=== PATIENT | male | born 1970 | race Caucasian/White ===

== ENCOUNTER → 2018-03-20 | Outpatient (CLI) | payer BC | LOC: HYPER 03-12 17:13 | DX: E11.621 Type 2 diabetes mellitus with foot ulcer (principal); L97.522 Non-pressure chronic ulcer of other part of left foot with fat layer exposed; L84 Corns and callosities; E11.69 Type 2 diabetes mellitus with other specified complication; M86.8X7 Other osteomyelitis, ankle and foot; E11.42 Type 2 diabetes mellitus with diabetic polyneuropathy; E78.5 Hyperlipidemia, unspecified; B35.3 Tinea pedis; I10 Essential (primary) hypertension; M24.574 Contracture, right foot ==

== ENCOUNTER → 2018-04-04 | Outpatient (CLI) | payer BC | LOC: HYPER 04-02 09:59 | DX: E11.621 Type 2 diabetes mellitus with foot ulcer (principal); L97.522 Non-pressure chronic ulcer of other part of left foot with fat layer exposed; L84 Corns and callosities; E11.41 Type 2 diabetes mellitus with diabetic mononeuropathy; E11.69 Type 2 diabetes mellitus with other specified complication; M86.8X7 Other osteomyelitis, ankle and foot; B35.3 Tinea pedis; E78.5 Hyperlipidemia, unspecified; I10 Essential (primary) hypertension ==

== ENCOUNTER → 2018-04-06 | Outpatient (CLI) | payer BC | LOC: HYPER 07:42 | DX: E11.621 Type 2 diabetes mellitus with foot ulcer (principal); L97.522 Non-pressure chronic ulcer of other part of left foot with fat layer exposed; L84 Corns and callosities; E11.41 Type 2 diabetes mellitus with diabetic mononeuropathy; E11.69 Type 2 diabetes mellitus with other specified complication; M86.8X7 Other osteomyelitis, ankle and foot; B35.3 Tinea pedis; E78.5 Hyperlipidemia, unspecified; I10 Essential (primary) hypertension ==

== ENCOUNTER → 2018-04-12 | Outpatient (CLI) | payer BC | LOC: HYPER 07:10 | DX: E11.621 Type 2 diabetes mellitus with foot ulcer (principal); L97.522 Non-pressure chronic ulcer of other part of left foot with fat layer exposed; L84 Corns and callosities; E11.41 Type 2 diabetes mellitus with diabetic mononeuropathy; E11.69 Type 2 diabetes mellitus with other specified complication; M86.8X7 Other osteomyelitis, ankle and foot; B35.3 Tinea pedis; E78.5 Hyperlipidemia, unspecified; I10 Essential (primary) hypertension ==

== ENCOUNTER → 2018-04-16 | Outpatient (CLI) | payer BC | LOC: HYPER 07:06 | DX: E11.621 Type 2 diabetes mellitus with foot ulcer (principal); L97.522 Non-pressure chronic ulcer of other part of left foot with fat layer exposed; L84 Corns and callosities; E11.41 Type 2 diabetes mellitus with diabetic mononeuropathy; E11.69 Type 2 diabetes mellitus with other specified complication; M86.8X7 Other osteomyelitis, ankle and foot; B35.3 Tinea pedis; E78.5 Hyperlipidemia, unspecified; I10 Essential (primary) hypertension ==

== ENCOUNTER → 2018-04-26 | Outpatient (CLI) | payer BC | LOC: HYPER 07:02 | DX: E11.621 Type 2 diabetes mellitus with foot ulcer (principal); L97.522 Non-pressure chronic ulcer of other part of left foot with fat layer exposed; L84 Corns and callosities; B35.3 Tinea pedis; E11.41 Type 2 diabetes mellitus with diabetic mononeuropathy; E11.69 Type 2 diabetes mellitus with other specified complication; M86.8X7 Other osteomyelitis, ankle and foot; E78.5 Hyperlipidemia, unspecified; I10 Essential (primary) hypertension; M24.574 Contracture, right foot; M24.575 Contracture, left foot ==

== ENCOUNTER → 2018-04-26 | Outpatient (CLI) | payer BC | LOC: MRI 07:39 | DX: L97.421 Non-pressure chronic ulcer of left heel and midfoot limited to breakdown of skin (principal); M60.872 Other myositis, left ankle and foot; L03.116 Cellulitis of left lower limb; M19.072 Primary osteoarthritis, left ankle and foot; M25.475 Effusion, left foot; R60.0 Localized edema ==

== ENCOUNTER → 2019-10-29 | Outpatient (CLI) | payer OTHER ==
[~2019-10-29] VITALS: Ht 180.3 cm; Wt 102.1 kg
[~2019-10-29] MED LIST: B-12 COMPL1000 MCG/1 INJECTION; GLUCOPHAGE1000 MG PO; GLUCOTROL10 MG PO; OZEMPIC0.25 MG/0. SUBLING; PRINIVIL40 MG PO; ROSUVASTATIN CA20 MG PO
[2019-10-29 08:09] VITALS: BP 121/97
--- NOTE | 2019-10-29 08:40 | NUR ---
Pain Clinic Assessment: 1. History of Osteoarthritis: Not Applicable History of Rheumatoid Arthritis: Not Applicable 2. Height: 5 ft. 11 in. 180.3 cm. Weight: 225.0 lb. oz. 102.060 kg. Patient's BMI: 31.4 3. Vital Signs: BP: 121/97 Pulse: 96 Resp: 16 Temp: 02 Sat: 97 ECG Mon: 4. Pain Intensity: 1 TODAY 3 AVG 5. Fall Risk: Dizziness: N Needs help standing or walking: N Fallen in the last 3 months: N Fall risk comments: 6. Patient on Blood Thinner: None 7. History of Hypertension: Y 8. Opioid Therapy greater than 6 weeks: N Opiate Contract Signed: 10/29/19 9. Risk Assessment Tool Provided: LOW 10. Functional Assessment Tool: 11. Recreational Drug Use: Never Drug Type: Tobacco Use: Current Some Day Smoker Tobacco Type: Cigars Amount or Packs/day: 1 How Many Years: 5 Alcohol Use: Yes Frequency: Monthly Quant: 1-2
--- NOTE | 2019-10-29 11:23 | HPC ---
[facility] [place] [address] PAIN MANAGEMENT CONSULTATION Name: RICHMOND DAY Room #: REG ANN Yoav.#: [id number] Admission: 10/29/19 Attend Phys: Gareth Olea DO Discharge: Date of : 68 Report #: [id number] THIS REPORT FOR: cc: Gregg Howard,Gareth Frazier DO ~ DATE OF SERVICE: 10/29/2019 REFERRING PHYSICIAN: Gregg Howard MD CHIEF COMPLAINT: Neck pain, bilateral upper extremity pain with paresthesias. HISTORY OF PRESENT ILLNESS: As you know, the patient is a very pleasant 48-year-old male who reports acute onset of neck pain, bilateral upper extremity pain that began 10/2015. The patient denies injury or trauma that may have led to symptom development. He has been dealing with symptoms on and off since that time. He sought evaluation through his primary care physician, Dr. Gregg Howard, who trialled conservative treatment options. He is being worked up for vitamin B12 deficiency as well as cervical radiculopathy for which the patient was referred to our clinic and is having evaluation from ENT in regards to a thyroid mass found on the right side incidentally during MRI of the cervical spine. The patient has been referred to our service to discuss treatment options for possible cervical radiculopathy. The findings of this MRI of the cervical spine did show changes at C5-C6 and C6-C7 level, which show mild to moderate changes. There was concern that some of his symptoms were related to cervical radiculopathy. The patient reports today his pain is periodic and momentary, describes the pain as shooting, sharp, numbness and tingling. Places current pain score 1/10, daily average of 3/10, worst pain has been as 4/10. The patient states that his symptoms tend to exacerbate with weather changes. He reports no improvement in symptoms with any treatment today. He has been referred to our service to discuss treatment options for possible cervical radiculopathy. PAST MEDICAL HISTORY: 1. Vitamin B12 deficiency. 2. Peripheral neuropathy. 3. Hypertension. 4. Dyslipidemia. 5. Diabetes mellitus type 2. 6. Thyroid mass. 7. Cataracts. PAST SURGICAL HISTORY: 1. Osteotomy of the metatarsal on the left. [address] [address] PAIN MANAGEMENT CONSULTATION Name: RICHMOND DAY Room #: REG [facility] Yoav.#: [id number] Admission: 10/29/19 Attend Phys: Gareth Olea DO Discharge: Date of : 68 Report #: [id number] 2. Sesamoid ectomy, first toe bilaterally. 3. Right fourth toe amputation. 4. Tracheostomy, status post allergic reaction. SOCIAL HISTORY: The patient reports he is a nonsmoker. Denies IV or illicit drug use. Admits to one alcohol beverage per day. He is in software database architect. He is working, not receiving workmen's compensation nor is he trying to obtain disability benefits. He is unaccompanied at today's visit. REVIEW OF SYSTEMS: Positive for weight change, headaches, wearing corrective eyewear, cataracts, numbness and tingling sensations involving the bilateral upper extremities and lower extremities and non-insulin dependent diabetes. All other review of systems negative per 12-point review of systems other than those listed in history of present illness. Pain impact score 12/70 indicating mild interference of daily activities secondary to pain. IMAGING: MRI of the cervical spine obtained on 10/01/2019 shows C2-C3, C3-C4, C4-C5 unremarkable. C5-C6 shows mild disk narrowing, ventral endplate osteophyte formation with broad-based posterior disk osteophyte complex resulting in minimal flattening of the ventral thecal sac. No focal disk herniation. Results in mild central canal stenosis. Right uncovertebral osteophyte formation resulting in mild right neural foraminal narrowing, minimal left. C6-C7 shows mild disk space narrowing, Modic type 2 endplate degenerative changes, minimal ventral endplate osteophyte formation, broad-based posterior disk osteophyte formation noted asymmetrical to the right. Superimposed right paracentral to annular disc bulge resulting in flattening of the right ventral thecal sac. No focal disk herniation. Mild central canal stenosis, bilateral uncovertebral osteophyte formation resulting in mild bilateral neural foraminal stenosis. C7-T1 unremarkable. PHYSICAL EXAMINATION: VITAL SIGNS: Blood pressure 121/97, pulse is 96, respiratory rate 16 and unlabored. The patient is 97% on room air. Height 5 feet 11 inches tall, weight 225 pounds, BMI calculated 31.4. GENERAL: Well-developed, well-nourished, well-hydrated, 48-year-old male. He appears stated age. Pain is rated today to a level of 1-3/10. HEENT: Normocephalic, atraumatic. Pupils equal, round and reactive. Extraocular muscles are intact. NEUROLOGIC: Speech fluent. The patient deemed a fair historian. LUNGS: Clear. No wheeze, rhonchi, no rales. CARDIOVASCULAR: Regular. No appreciable gallop, no rub. ABDOMEN: Soft, nontender, nondistended. Bowel sounds are present. EXTREMITIES: Show no clubbing, no cyanosis, no edema. MUSCULOSKELETAL: Palpatory tenderness over the cervical spine. No spinous [address] [place] [address] PAIN MANAGEMENT CONSULTATION Name: RICHMOND DAY Room #: REG ANN Usha.#: [id number] Admission: 10/29/19 Attend Phys: Gareth Olea DO Discharge: Date of : 68 Report #: [id number] process tenderness. There is no deformity, no spasming of the area. Upper extremity strength appears equal and symmetrical 5/5. He is intact to light touch in the upper extremities except for a decreased sensation along the right C6-C7 dermatome, negative left. Muscle bulk and tone is symmetrical when comparing upper extremities. Spurling's test is equivocal. Deep tendon reflexes are symmetrical, 2+/4 at biceps, brachialis and triceps. ASSESSMENT: 1. Possible cervical radiculopathy. 2. Displacement of cervical intervertebral disk with radicular symptoms. 3. Neural foraminal stenosis of the cervical spine. 4. Vitamin B deficiency. 5. Peripheral neuropathy. 6. Chronic intractable pain. PLAN: 1. Based on today's physical exam and the history the patient has provided, the description the patient uses in regard to pain, it would appear he is suffering from 2 different pain generators. One is likely cervical radiculopathy on the right consistent with the loss of dermatomal distribution to tactile sensation on the C6 and C7 dermatome on the right consistent with the findings in his MRI. The patient is suffering from peripheral neuropathic symptoms secondary to vitamin B12 deficiency, which is consistent with his extremely low numbers and follow up with Neurology. We discussed with the patient that treatment options for his cervical radiculopathy would be as follows. We also discussed treatment options for his peripheral neuropathy. The following was discussed with the patient today. In regards to the patient's cervical radiculopathy treatment would include physical therapy, stretching exercises and traction techniques. We discussed medication management utilizing neuropathic pain medication such as nortriptyline, amitriptyline, Cymbalta, Lyrica or gabapentin. We discussed cervical epidural injection under fluoroscopic guidance to address his right C6-C7 dermatomal distribution of radicular pain. We also discussed surgery options with the patient today. After reviewing risks and benefits of all proposed treatment options, the patient chose to move forward with a cervical epidural injection under fluoroscopic guidance. The patient does report he has undergone chiropractic manipulation, but this did not provide much in the way of improvement. He is hopeful an epidural injection will provide improvement. 2. The patient was advised that due to third alliance party payer restrictions, authorization would have to be obtained before the patient could undergo a cervical epidural injection. We will begin this authorization process immediately. Once it has been obtained, we will have the patient return to undergo the epidural injection requested. 3. In regards to the patient's peripheral neuropathic symptoms secondary to vitamin B12 deficiency, I recommend he continue to follow up with Neurology in [address] [address] PAIN MANAGEMENT CONSULTATION Name: RICHMOND DAY Room #: REG CLSindhu Madsen#: [id number] Admission: 10/29/19 Attend Phys: Gareth Olea DO Discharge: Date of : 68 Report #: [id number] regards to vitamin B supplementation, which apparently he has now normalized his vitamin B12 with weekly injections. Peripheral neuropathic symptoms may be resolved with neuropathic symptoms and we can discuss this at the next visit or he can discuss this with his neurologist in starting some type of neuropathic medication such as nortriptyline, amitriptyline, Cymbalta, Lyrica or gabapentin, all of which could be quite beneficial. We will discuss this again at followup visit. 4. We will see the patient back in followup visit once we have achieved authorization for the patient to undergo cervical epidural injection to address his right C6-C7 dermatomal distribution of radiculopathy. We are hopeful to have this authorization as quickly as possible. 5. No direct medication changes were made at today's visit. We will have the patient continue current medical therapy as previously prescribed. 6. We wish to thank Dr. Howard for the referral of this patient to our clinic. We will keep you apprised of his response to treatment as we address the cervical radicular component of the patient's symptoms and also discuss treatment options for his peripheral neuropathic symptoms secondary to vitamin B12 deficiency. Again, we wish to thank you for the opportunity to see this patient in consultation. <ELECTRONICALLY SIGNED> By: Gareth Olea DO 10/29/19 [id number] Gareth Olea DO /nt
== END ==
LOC: PAIN 06:48
PROVIDERS: ATTEND Anesthesiology Pain Medicine
DX: M50.30 Other cervical disc degeneration, unspecified cervical region (principal); M79.604 Pain in right leg; M79.605 Pain in left leg; R20.2 Paresthesia of skin; M48.02 Spinal stenosis, cervical region; E53.0 Riboflavin deficiency; G62.9 Polyneuropathy, unspecified; I10 Essential (primary) hypertension; E11.9 Type 2 diabetes mellitus without complications

== ENCOUNTER → 2019-10-30 | Outpatient (CLI) | payer OTHER ==
[~2019-10-30] VITALS: Ht 180.3 cm; Wt 102.1 kg
--- NOTE | ~2019-10-30 | HPC ---
[facility] [place] [address] [place] [address] PAIN MANAGEMENT CONSULTATION Name: RICHMOND DAY Room #: REG ANN Yoav.#: [id number] Admission: 10/30/19 Attend Phys: Gareth Olea DO Discharge: Date of : 68 Report #: [id number] THIS REPORT FOR: cc: Gregg Howard,Gareth Frazier DO ~ CC: Gareth Howard MD DATE OF SERVICE: 10/30/2019 REFERRING PHYSICIAN: Gregg Howard MD CHIEF COMPLAINT: Neck pain, bilateral upper extremity pain and paresthesias. HISTORY OF PRESENT ILLNESS: As you know, the patient is a very pleasant 48-year-old male with acute onset of neck pain, bilateral upper extremity pain began in October 2015. He denies new injury or trauma that may have led the symptom development. He sought evaluation through his primary care physician who trialled conservative treatment options, unfortunately, these did not provide long-term benefit. He subsequently has undergone imaging, which showed changes consistent with cervical radiculopathy. The patient was sent to our clinic. We saw the patient in consultation per the request of Dr. Howard on 10/29/2019 where the patient was diagnosed with cervical radiculopathy secondary to the displacement of a cervical intervertebral disk and neural foraminal stenosis. He was given today's appointment to undergo a cervical epidural injection. He is also suffering from peripheral neuropathic symptoms consistent with his B12 deficiency. Despite the fact the patient has normalized his B12 over the past year, he has not seen much in the way of improvement. He continues to be treated for this issue. He returns today to undergo cervical epidural injection and determine how much of his upper extremity symptoms are related to his cervical radiculopathy. ALLERGIES: No known drug allergies. CURRENT MEDICATIONS: Ozempic 0.5 mg sublingual monthly, metformin 1000 mg twice a day, glipizide 10 mg twice a day, lisinopril 40 mg once a day, rosuvastatin 20 mg once a day, cyanocobalamin 1000 mcg injected monthly. SOCIAL HISTORY: The patient denies tobacco, denies IV or illicit drug use. Admits to 1 alcohol beverage per day. 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 He is working, not receiving workmen's compensation, unaccompanied today. IMAGING: [place] [address] PAIN MANAGEMENT CONSULTATION Name: RICHMOND DAY Room #: REG ANN Tena#: [id number] Admission: 10/30/19 Attend Phys: Gareth Olea DO Discharge: Date of : 68 Report #: [id number] PHYSICAL EXAMINATION: VITAL SIGNS: Blood pressure 131/97, pulse 93, respiratory rate 16 and unlabored. The patient is 96% on room air. Height 5 feet 11 inches tall, weight 225 pounds, BMI calculated 31.4. GENERAL: Well-developed, well-nourished, well-hydrated 48-year-old male appearing stated age, pain is rated today 1/10. HEENT: Normocephalic, atraumatic. Pupils are equal, round and reactive. Speech fluent. EXTREMITIES: Show no clubbing, no cyanosis, no edema. MUSCULOSKELETAL: Upper extremity strength remains symmetrical 5/5. Intact to light touch from C5-T1 dermatomes, though there is a decrease in tactile sensation noted again at the C6-C7 dermatome on the right. Muscle bulk and tone is symmetrical in comparing upper extremities. Spurling's test is equivocal. ASSESSMENT: 1. Symptomatic cervical radiculopathy. 2. Displacement of cervical intervertebral disk with radicular symptoms. 3. Neural foraminal stenosis of lumbar spine. 4. Vitamin B deficiency. 5. Peripheral neuropathy. 6. Chronic intractable pain. PLAN: 1. The patient returns today in followup visit to undergo cervical epidural injection under fluoroscopic guidance to address cervical radicular symptoms. The patient has been advised of the risks and the benefits of this procedure. These risks include, but are not necessarily limited to; bleeding, bruising, infection, worsening pain, no relief of pain, temporary or permanent muscle weakness, temporary or permanent nerve damage, possible paralysis and . The patient states understood and wished to proceed. 2. No medication changes made at today's visit. The patient will continue current medical therapy as previously prescribed. 3. We will see the patient back in followup visit on an as needed basis for possible next in the series of cervical epidural injections. We are hopeful the patient will see good and prolonged benefit with today's procedure. PROCEDURE NOTE DESCRIPTION OF PROCEDURE: C7-T1 cervical epidural steroid injection under fluoroscopic guidance. This is the first procedure of the first series that the patient is undergoing. After obtaining written consent, the patient was taken back to the fluoroscopy suite and placed in a prone position with separate pillows under chest and [facility] [address] [place] [address] PAIN MANAGEMENT CONSULTATION Name: RICHMOND DAY Room #: REG CLSindhu Madsen#: [id number] Admission: 10/30/19 Attend Phys: Gareth Olea DO Discharge: Date of : 68 Report #: [id number] forehead to decrease cervical lordosis. The skin overlying the cervical area was prepped and draped in an aseptic fashion. The C7-T1 vertebral interspace was identified by AP fluoroscopy. The skin and subcutaneous tissue overlying the target site of injection was anesthetized using 3 mL of 1% lidocaine. A 20-gauge 3-1/2 inch Tuohy needle was advanced under fluoroscopic guidance toward the epidural space using a midline approach. The epidural space was identified using a loss of resistance to air technique. After negative aspiration for heme or cerebrospinal fluid, a total of 1 mL of Omnipaque was injected. A cervical epidurogram was confirmed using AP and oblique fluoroscopy. After negative aspiration for heme or cerebrospinal fluid, 5 mL of a solution containing 2 mL 40 mg per mL, 80 mg total triamcinolone along with 3 mL lidocaine 1% was injected in increments. Contrast spread was noted from posterior epidural space. The needle was then retracted approximately penitentiary and the needle track was flushed with 1 mL of 1% lidocaine. There were no apparent new sensory deficits in the upper extremities present following the procedure. A sterile bandage was placed over the injection site. The heart rate, pulse oximetry and blood pressure were continuously monitored after the procedure. There were no apparent complications. The patient tolerated the procedure well and was carefully escorted in the recovery room in stable condition. After meeting discharge criteria, the patient was discharged home. By: [id number] Gareth Olea DO /nt
[2019-10-30 15:19] VITALS: BP 131/97
--- NOTE | 2019-10-30 15:36 | NUR ---
Pain Clinic Assessment: 1. History of Osteoarthritis: Not Applicable History of Rheumatoid Arthritis: Not Applicable 2. Height: 5 ft. 11 in. 180.3 cm. Weight: 225.0 lb. oz. 102.060 kg. Patient's BMI: 31.4 3. Vital Signs: BP: 131/97 Pulse: 93 Resp: 16 Temp: 02 Sat: 96 ECG Mon: 4. Pain Intensity: 1 5. Fall Risk: Dizziness: N Needs help standing or walking: N Fallen in the last 3 months: N Fall risk comments: 6. Patient on Blood Thinner: None 7. History of Hypertension: Y 8. Opioid Therapy greater than 6 weeks: N Opiate Contract Signed: 10/29/19 9. Risk Assessment Tool Provided: LOW 10. Functional Assessment Tool: 11. Recreational Drug Use: Never Drug Type: Tobacco Use: Current Some Day Smoker Tobacco Type: Amount or Packs/day: How Many Years: Alcohol Use: Yes Frequency: Quant:
== END | disposition home or self-care (01) ==
LOC: PAIN 06:52
PROVIDERS: ATTEND Anesthesiology Pain Medicine
DX: M50.10 Cervical disc disorder with radiculopathy, unspecified cervical region (principal); M48.02 Spinal stenosis, cervical region; M48.061 Spinal stenosis, lumbar region without neurogenic claudication; G62.9 Polyneuropathy, unspecified; G89.29 Other chronic pain; Z79.899 Other long term (current) drug therapy

== ENCOUNTER → 2020-12-21 | Outpatient (CLI) | payer OTHER | LOC: SJCVC 12-17 08:35 → SJCVCIMAG 06:27 | PROVIDERS: ATTEND Nuclear Medicine Nuclear Cardiology | DX: I73.9 Peripheral vascular disease, unspecified (principal); M79.605 Pain in left leg; M79.604 Pain in right leg ==

== ENCOUNTER → 2020-12-23 | Outpatient (CLI) | payer OTHER | LOC: SJCVCIMAG 13:00 | PROVIDERS: ATTEND Internal Medicine Cardiovascular Disease | DX: R94.31 Abnormal electrocardiogram [ECG] [EKG] (principal); I77.89 Other specified disorders of arteries and arterioles; E11.9 Type 2 diabetes mellitus without complications; R00.0 Tachycardia, unspecified; I10 Essential (primary) hypertension ==

== ENCOUNTER → 2021-02-01 | Outpatient (CLI) | payer OTHER | LOC: CAT 10:14 | PROVIDERS: ATTEND Internal Medicine Cardiovascular Disease | DX: Z13.6 Encounter for screening for cardiovascular disorders (principal); E78.00 Pure hypercholesterolemia, unspecified; I25.10 Atherosclerotic heart disease of native coronary artery without angina pectoris ==

== ENCOUNTER → 2021-02-01 | Outpatient (CLI) | payer OTHER | LOC: SJCVCIMAG 08:30 | PROVIDERS: ATTEND Internal Medicine Cardiovascular Disease | DX: R53.83 Other fatigue (principal); R07.89 Other chest pain ==